=== PATIENT | female | born 1975 | race Caucasian/White ===

== ENCOUNTER → 2021-04-13 | Outpatient (CLI) | payer BC ==
[2021-04-13 08:44] LABS: HEMOGLOBIN 14.4 gm/dl (12.3-15.3); RED BLOOD COUNT 5.3 M/UL (4.00-5.10)
[2021-04-13 09:41] LABS: BUN/CREATININE RATIO 8 (0-10)
== END ==
LOC: LAB 08:25
PROVIDERS: Family Medicine
DX: M54.5 Low back pain (principal); M79.645 Pain in left finger(s); E55.9 Vitamin D deficiency, unspecified; F41.9 Anxiety disorder, unspecified; F32.9 Major depressive disorder, single episode, unspecified; Z13.220 Encounter for screening for lipoid disorders
CPT/HCPCS: 36415; 72110; 73130; 80053; 80061; 83735; 84443; 85027